=== PATIENT | male | born 1980 | race Caucasian/White ===

== ENCOUNTER 2023-10-18 11:23 | Inpatient (IN) | payer OTHER ==
[2023-10-18 12:17] VITALS: BMI 24.1
[2023-10-18] MEDS ORDERED: NALOXONE HCL (KLOXXADO) 8 MG SPRAY NS PRN (12:50)
[2023-10-18] MEDS ORDERED: MAGNESIUM HYDROX 2400MG/30ML ORAL SUSPENSION 30 ML CUP PO PRN (12:50)
[2023-10-18] MEDS ORDERED: ONDANSETRON *ODT* 4 MG TABLET SL PRN (12:50)
[2023-10-18] MEDS ORDERED: MAG HYDROX/AL HYDROX/SIMETH 30 ML UNIT-DOSE CUP PO PRN (12:50)
[2023-10-18] MEDS ORDERED: METHOCARBAMOL 500 MG TABLET PO PRN (12:50)
[2023-10-18] MEDS ORDERED: BENZONATATE 200 MG CAPSULE PO PRN (12:50)
[2023-10-18] MEDS ORDERED: LORazepam 1 MG TABLET PO PRN (12:50)
[2023-10-18] MEDS ORDERED: POLYETHYLENE GLYCOL (HEALTHYLAX) 3350 17 GM PACKET PO PRN (12:50)
[2023-10-18] MEDS ORDERED: IBUPROFEN 600 MG TABLET (FP) PO PRN (12:50)
[2023-10-18] MEDS ORDERED: BISMUTH SUBSALICYLATE 262 MG/15 ML BTL PO PRN (12:50)
[2023-10-18] MEDS ORDERED: LOPERAMIDE HCL 2 MG CAPSULE PO PRN (12:50)
[2023-10-18] MEDS ORDERED: DICYCLOMINE HCL 10 MG CAPSULE PO PRN (12:50)
[2023-10-18] MEDS ORDERED: BENZOCAINE/MENTHOL (CHLORASEPTIC ) LOZENGE MM PRN (12:50)
[2023-10-18] MEDS ORDERED: guaiFENesin 600 MG TABLET.ER (FP) PO PRN (12:50)
[2023-10-18] MEDS ORDERED: IBUPROFEN 400 MG TABLET (FP) PO PRN (12:50)
[2023-10-18] MEDS ORDERED: NALOXONE HCL 0.4 MG/ML VIAL IM PRN (12:50)
[2023-10-18] MEDS ORDERED: hydrOXYzine PAMOATE 25 MG CAPSULE (FP) PO PRN (12:50)
[2023-10-18] MEDS ORDERED: NICOTINE 21 MG/24 HOURS TOPICAL PATCH TD STA (15:08)
[2023-10-18] MEDS ORDERED: PRENATAL VITAMINS W/ FOLIC ACID TABLET (FP) PO ONE (15:15)
[2023-10-18] MEDS: PRENATAL VITAMINS W/ FOLIC ACID TABLET (FP) PO SCH (15:45)
[2023-10-18] MEDS: NICOTINE 21 MG/24 HOURS TOPICAL PATCH TD SCH (15:46)
[2023-10-18] MEDS: LORazepam 2 MG TABLET PO SCH (22:34)
[2023-10-18] MEDS: MELATONIN 5 MG TABLETS PO SCH (22:34)
[2023-10-18] MEDS: THIAMINE HCL 100 MG TABLET (FP) PO SCH (22:34)
[2023-10-19] MEDS: LORazepam 2 MG TABLET PO SCH ×4 (05:28→22:35)
[2023-10-19] MEDS: PRENATAL VITAMINS W/ FOLIC ACID TABLET (FP) PO SCH (10:41)
[2023-10-19] MEDS: methaDONE HCL 40 MG DISPERSABLE TABLET PO SCH (10:41)
[2023-10-19 10:50] LABS: CHLORIDE 108 mmol/L (98-107); SODIUM 143 mmol/L (136-145)
[2023-10-19 11:03] LABS: HEMOGLOBIN 12.4 GM/dL (11.7-16.9); MCH 32.4 pg (25.7-33.7); MCHC 33.4 g/dl (32.0-35.9); MEAN CELL VOLUME 97.1 fl (80-96); MEAN PLT VOLUME 8.5 fl (7.5-11.1); PLATELET COUNT 206 10^3/uL (134-434); RBC 3.81 M/mm3 (4.00-5.60); RDW 13.3 % (11.9-15.9); WHITE BLOOD COUNT 5.2 K/mm3 (4.0-10.0)
[2023-10-19 11:08] LABS: CALCIUM 8.4 mg/dL (8.5-10.1); GLUCOSE,RANDOM 79 mg/dL (74-106)
[2023-10-19 11:09] LABS: ALBUMIN 3.2 g/dl (3.4-5.0); ANION GAP 4 mmol/L (4-13); CO2 31 mmol/L (21-32)
[2023-10-19 11:12] LABS: CREATININE 0.6 mg/dL (0.55-1.3); SGOT/AST 23 U/L (15-37); SGPT/ALT 22 U/L (13-61)
[2023-10-19 11:13] LABS: BILIRUBIN,TOTAL 0.8 mg/dL (0.2-1); TOT PROT 5.6 g/dl (6.4-8.2)
[2023-10-19 11:14] LABS: ALK PHOS 63 U/L (45-117)
[2023-10-19] MEDS: NICOTINE 21 MG/24 HOURS TOPICAL PATCH TD SCH (13:20)
[2023-10-19] MEDS: THIAMINE HCL 100 MG TABLET (FP) PO SCH (22:35)
[2023-10-19] MEDS: MELATONIN 5 MG TABLETS PO SCH (22:35)
[2023-10-20] MEDS: LORazepam 1 MG TABLET PO SCH ×4 (06:04→22:45)
[2023-10-20] MEDS: methaDONE HCL 40 MG DISPERSABLE TABLET PO SCH (06:06)
[2023-10-20] MEDS: NICOTINE 21 MG/24 HOURS TOPICAL PATCH TD SCH (10:36)
[2023-10-20] MEDS: PRENATAL VITAMINS W/ FOLIC ACID TABLET (FP) PO SCH (10:36)
[2023-10-20] MEDS: ACETAMINOPHEN 325 MG TABLET (FP) PO PRN (17:42)
[2023-10-20] MEDS: MELATONIN 5 MG TABLETS PO SCH (22:45)
[2023-10-20] MEDS: THIAMINE HCL 100 MG TABLET (FP) PO SCH (22:45)
[2023-10-21] MEDS ORDERED: LORazepam 0.5 MG TABLET PO PRN
[2023-10-21] MEDS: methaDONE HCL 40 MG DISPERSABLE TABLET PO SCH (05:25)
[2023-10-21] MEDS: LORazepam 0.5 MG TABLET PO SCH ×4 (05:26→22:40)
[2023-10-21] MEDS: NICOTINE 21 MG/24 HOURS TOPICAL PATCH TD SCH (10:15)
[2023-10-21] MEDS: PRENATAL VITAMINS W/ FOLIC ACID TABLET (FP) PO SCH (10:15)
[2023-10-21] MEDS: ACETAMINOPHEN 325 MG TABLET (FP) PO PRN (17:26)
[2023-10-21 21:05] VITALS: RESP 18
[2023-10-21] MEDS: THIAMINE HCL 100 MG TABLET (FP) PO SCH (22:40)
[2023-10-21] MEDS: MELATONIN 5 MG TABLETS PO SCH (22:40)
[2023-10-22] MEDS ORDERED: LORazepam 0.5 MG TABLET PO ONE (05:00)
[2023-10-22] MEDS: methaDONE HCL 40 MG DISPERSABLE TABLET PO SCH (05:51)
[2023-10-22 08:54] VITALS: BP 124/69; PULSE 68; TEMP 97.7
[2023-10-22] MEDS: NICOTINE 21 MG/24 HOURS TOPICAL PATCH TD SCH (10:29)
[2023-10-22] MEDS: PRENATAL VITAMINS W/ FOLIC ACID TABLET (FP) PO SCH (10:29)
== END 2023-10-22 11:33 | disposition other institution (70) | DRG 773 ==
LOC: YASAS 11:23 → Y3N 13:06
PROVIDERS: ADMIT Allergy & Immunology; ATTEND Surgery
PROC: HZ2ZZZZ Detoxification Services for Substance Abuse Treatment (ICD-10-PCS; principal; 2023-10-18)
DX: F10.230 Alcohol dependence with withdrawal, uncomplicated (principal); F11.20 Opioid dependence, uncomplicated; F14.20 Cocaine dependence, uncomplicated; F17.210 Nicotine dependence, cigarettes, uncomplicated; F31.9 Bipolar disorder, unspecified; Z86.69 Personal history of other diseases of the nervous system and sense organs; Z99.89 Dependence on other enabling machines and devices; Z59.02 Unsheltered homelessness
CPT/HCPCS: 36415; 80053; 80307; 85027; 86780; 87635; 87811; 93005; 93010

== ENCOUNTER 2023-10-22 11:41 | Inpatient (IN) | payer OTHER ==
[2023-10-22] MEDS ORDERED: IBUPROFEN 400 MG TABLET (FP) PO PRN (12:48)
[2023-10-22] MEDS ORDERED: NALOXONE HCL 0.4 MG/ML VIAL IVPUSH PRN (12:48)
[2023-10-22] MEDS ORDERED: hydrOXYzine PAMOATE 25 MG CAPSULE (FP) PO PRN (12:48)
[2023-10-22] MEDS ORDERED: IBUPROFEN 600 MG TABLET (FP) PO PRN (12:48)
[2023-10-22] MEDS ORDERED: BENZONATATE 200 MG CAPSULE PO PRN (12:48)
[2023-10-22] MEDS ORDERED: MAGNESIUM HYDROX 2400MG/30ML ORAL SUSPENSION 30 ML CUP PO PRN (12:48)
[2023-10-22] MEDS ORDERED: LOPERAMIDE HCL 2 MG CAPSULE PO PRN (12:48)
[2023-10-22] MEDS ORDERED: NALOXONE HCL (KLOXXADO) 8 MG SPRAY NS PRN (12:48)
[2023-10-22] MEDS ORDERED: MAG HYDROX/AL HYDROX/SIMETH 30 ML UNIT-DOSE CUP PO PRN (12:48)
[2023-10-22] MEDS ORDERED: POLYETHYLENE GLYCOL (HEALTHYLAX) 3350 17 GM PACKET PO PRN (12:48)
[2023-10-22] MEDS ORDERED: guaiFENesin 600 MG TABLET.ER (FP) PO PRN (12:48)
[2023-10-22] MEDS ORDERED: ACETAMINOPHEN 325 MG TABLET (FP) PO PRN (12:48)
[2023-10-22] MEDS ORDERED: COLLOIDAL OATMEAL 1 BAR EACH TP PRN (12:48)
[2023-10-22] MEDS ORDERED: methaDONE HCL 10 MG TABLET PO ONE (12:51)
[2023-10-22] MEDS: MELATONIN 5 MG TABLETS PO SCH (21:16)
[2023-10-22] MEDS: THIAMINE HCL 100 MG TABLET (FP) PO SCH (21:16)
[2023-10-23] MEDS: methaDONE HCL 40 MG DISPERSABLE TABLET PO SCH (06:28)
[2023-10-23] MEDS: PRENATAL VITAMINS W/ FOLIC ACID TABLET (FP) PO SCH (10:10)
[2023-10-23] MEDS ORDERED: buPROPion HCL 100 MG TABLET PO SCH (13:45)
[2023-10-23] MEDS: buPROPion HCL 100 MG TABLET PO SCH (18:01)
[2023-10-23] MEDS: THIAMINE HCL 100 MG TABLET (FP) PO SCH (21:24)
[2023-10-23] MEDS: MELATONIN 5 MG TABLETS PO SCH (21:24)
[2023-10-23] MEDS: QUEtiapine FUMARATE 100 MG TABLET (FP) PO SCH (21:25)
[2023-10-24] MEDS: methaDONE HCL 40 MG DISPERSABLE TABLET PO SCH (06:20)
[2023-10-24] MEDS: buPROPion HCL 100 MG TABLET PO SCH ×2 (09:33→19:33)
[2023-10-24] MEDS: PRENATAL VITAMINS W/ FOLIC ACID TABLET (FP) PO SCH (09:33)
[2023-10-24] MEDS: SELENIUM SULFIDE 2.25% 180 ML SHAMPOO TP SCH (12:45)
[2023-10-24 13:30] LABS: HIV INTERPRETATION NEGATIVE (NEGATIVE)
[2023-10-24] MEDS: GABAPENTIN 300 MG CAPSULE PO SCH ×2 (13:32→21:13)
[2023-10-24] MEDS: THIAMINE HCL 100 MG TABLET (FP) PO SCH (21:13)
[2023-10-24] MEDS: QUEtiapine FUMARATE 100 MG TABLET (FP) PO SCH (21:13)
[2023-10-24] MEDS: MELATONIN 5 MG TABLETS PO SCH (21:14)
[2023-10-25] MEDS: methaDONE HCL 40 MG DISPERSABLE TABLET PO SCH (06:22)
[2023-10-25] MEDS: GABAPENTIN 300 MG CAPSULE PO SCH ×3 (06:22→21:11)
[2023-10-25] MEDS: buPROPion HCL 100 MG TABLET PO SCH ×2 (09:30→17:08)
[2023-10-25] MEDS: PRENATAL VITAMINS W/ FOLIC ACID TABLET (FP) PO SCH (09:30)
[2023-10-25] MEDS: SELENIUM SULFIDE 2.25% 180 ML SHAMPOO TP SCH (09:31)
[2023-10-25 11:06] LABS: INR 0.99 (0.83-1.09); PROTHROMBIN TIME (PATIENT) 11.5 SEC (9.7-13.0)
[2023-10-25] MEDS: QUEtiapine FUMARATE 100 MG TABLET (FP) PO SCH (21:11)
[2023-10-25] MEDS: MELATONIN 5 MG TABLETS PO SCH (21:11)
[2023-10-25] MEDS: THIAMINE HCL 100 MG TABLET (FP) PO SCH (21:11)
[2023-10-26] MEDS: methaDONE HCL 40 MG DISPERSABLE TABLET PO SCH (06:16)
[2023-10-26] MEDS: GABAPENTIN 300 MG CAPSULE PO SCH ×3 (06:17→21:15)
[2023-10-26] MEDS: BENZOCAINE/MENTHOL (CHLORASEPTIC ) LOZENGE MM PRN ×3 (09:08→21:17)
[2023-10-26] MEDS: buPROPion HCL 100 MG TABLET PO SCH ×2 (09:22→17:20)
[2023-10-26] MEDS: PRENATAL VITAMINS W/ FOLIC ACID TABLET (FP) PO SCH (09:22)
[2023-10-26] MEDS: SELENIUM SULFIDE 2.25% 180 ML SHAMPOO TP SCH (09:23)
[2023-10-26] MEDS ORDERED: ALBUTEROL SO4 HFA INHALER IH PRN (10:32)
[2023-10-26] MEDS ORDERED: guaiFENesin 600 MG TABLET.ER (FP) PO PRN (10:34)
[2023-10-26] MEDS ORDERED: BENZONATATE 200 MG CAPSULE PO PRN (10:34)
[2023-10-26] MEDS: QUEtiapine FUMARATE 100 MG TABLET (FP) PO SCH (21:15)
[2023-10-26] MEDS: THIAMINE HCL 100 MG TABLET (FP) PO SCH (21:15)
[2023-10-26] MEDS: MELATONIN 5 MG TABLETS PO SCH (21:15)
[2023-10-27] MEDS: GABAPENTIN 300 MG CAPSULE PO SCH ×3 (06:25→21:36)
[2023-10-27] MEDS: methaDONE HCL 40 MG DISPERSABLE TABLET PO SCH (06:25)
[2023-10-27] MEDS: buPROPion HCL 100 MG TABLET PO SCH ×2 (09:48→17:12)
[2023-10-27] MEDS: PRENATAL VITAMINS W/ FOLIC ACID TABLET (FP) PO SCH (09:48)
[2023-10-27] MEDS: SELENIUM SULFIDE 2.25% 180 ML SHAMPOO TP SCH (09:54)
[2023-10-27] MEDS: QUEtiapine FUMARATE 100 MG TABLET (FP) PO SCH (21:36)
[2023-10-27] MEDS: MELATONIN 5 MG TABLETS PO SCH (21:36)
[2023-10-27] MEDS: THIAMINE HCL 100 MG TABLET (FP) PO SCH (21:36)
[2023-10-28] MEDS: GABAPENTIN 300 MG CAPSULE PO SCH ×3 (06:47→21:37)
[2023-10-28] MEDS: methaDONE HCL 40 MG DISPERSABLE TABLET PO SCH (06:47)
[2023-10-28] MEDS: PRENATAL VITAMINS W/ FOLIC ACID TABLET (FP) PO SCH (10:42)
[2023-10-28] MEDS: buPROPion HCL 100 MG TABLET PO SCH ×2 (10:42→17:01)
[2023-10-28] MEDS: SELENIUM SULFIDE 2.25% 180 ML SHAMPOO TP SCH (10:49)
[2023-10-28] MEDS: MELATONIN 5 MG TABLETS PO SCH (21:37)
[2023-10-28] MEDS: QUEtiapine FUMARATE 100 MG TABLET (FP) PO SCH (21:38)
[2023-10-28] MEDS: THIAMINE HCL 100 MG TABLET (FP) PO SCH (21:38)
[2023-10-29] MEDS: methaDONE HCL 40 MG DISPERSABLE TABLET PO SCH (06:38)
[2023-10-29] MEDS: GABAPENTIN 300 MG CAPSULE PO SCH ×3 (06:38→21:24)
[2023-10-29] MEDS: PRENATAL VITAMINS W/ FOLIC ACID TABLET (FP) PO SCH (10:11)
[2023-10-29] MEDS: buPROPion HCL 100 MG TABLET PO SCH ×2 (10:11→17:24)
[2023-10-29] MEDS: SELENIUM SULFIDE 2.25% 180 ML SHAMPOO TP SCH (11:10)
[2023-10-29] MEDS: THIAMINE HCL 100 MG TABLET (FP) PO SCH (21:24)
[2023-10-29] MEDS: MELATONIN 5 MG TABLETS PO SCH (21:24)
[2023-10-29] MEDS: QUEtiapine FUMARATE 100 MG TABLET (FP) PO SCH (21:24)
[2023-10-30] MEDS: GABAPENTIN 300 MG CAPSULE PO SCH ×3 (07:00→21:52)
[2023-10-30] MEDS: methaDONE HCL 40 MG DISPERSABLE TABLET PO SCH (07:00)
[2023-10-30] MEDS: buPROPion HCL 100 MG TABLET PO SCH ×2 (09:31→17:35)
[2023-10-30] MEDS: PRENATAL VITAMINS W/ FOLIC ACID TABLET (FP) PO SCH (09:31)
[2023-10-30] MEDS: SELENIUM SULFIDE 2.25% 180 ML SHAMPOO TP SCH (09:40)
[2023-10-30] MEDS: MELATONIN 5 MG TABLETS PO SCH (21:52)
[2023-10-30] MEDS: THIAMINE HCL 100 MG TABLET (FP) PO SCH (21:52)
[2023-10-30] MEDS: QUEtiapine FUMARATE 100 MG TABLET (FP) PO SCH (21:52)
[2023-10-31] MEDS: methaDONE HCL 40 MG DISPERSABLE TABLET PO SCH (07:00)
[2023-10-31] MEDS: GABAPENTIN 300 MG CAPSULE PO SCH ×3 (07:00→21:32)
[2023-10-31] MEDS: PRENATAL VITAMINS W/ FOLIC ACID TABLET (FP) PO SCH (10:04)
[2023-10-31] MEDS: buPROPion HCL 100 MG TABLET PO SCH ×2 (10:05→17:19)
[2023-10-31] MEDS: SELENIUM SULFIDE 2.25% 180 ML SHAMPOO TP SCH (10:09)
[2023-10-31] MEDS: QUEtiapine FUMARATE 100 MG TABLET (FP) PO SCH (21:32)
[2023-10-31] MEDS: THIAMINE HCL 100 MG TABLET (FP) PO SCH (21:32)
[2023-10-31] MEDS: MELATONIN 5 MG TABLETS PO SCH (21:33)
[2023-11-01] MEDS: GABAPENTIN 300 MG CAPSULE PO SCH ×3 (06:48→21:46)
[2023-11-01] MEDS: methaDONE HCL 40 MG DISPERSABLE TABLET PO SCH (06:48)
[2023-11-01] MEDS: PRENATAL VITAMINS W/ FOLIC ACID TABLET (FP) PO SCH (10:15)
[2023-11-01] MEDS: buPROPion HCL 100 MG TABLET PO SCH ×2 (10:15→17:47)
[2023-11-01] MEDS: THIAMINE HCL 100 MG TABLET (FP) PO SCH (21:46)
[2023-11-01] MEDS: QUEtiapine FUMARATE 100 MG TABLET (FP) PO SCH (21:46)
[2023-11-01] MEDS: MELATONIN 5 MG TABLETS PO SCH (21:46)
[2023-11-02] MEDS: methaDONE HCL 40 MG DISPERSABLE TABLET PO SCH (06:45)
[2023-11-02] MEDS: GABAPENTIN 300 MG CAPSULE PO SCH (06:45)
[2023-11-02 06:53] VITALS: BP 116/79; PULSE 98; RESP 17; TEMP 97.2
[2023-11-02] MEDS: buPROPion HCL 100 MG TABLET PO SCH (09:30)
[2023-11-02] MEDS: PRENATAL VITAMINS W/ FOLIC ACID TABLET (FP) PO SCH (09:30)
== END 2023-11-02 09:48 | disposition home or self-care (01) | DRG 772 ==
LOC: YASAS 11:41 → Y3E 11:44
PROVIDERS: ADMIT Allergy & Immunology; ATTEND Psychiatry & Neurology Pain Medicine
PROC: HZ42ZZZ Group Counseling for Substance Abuse Treatment, Cognitive-Behavioral (ICD-10-PCS; principal; 2023-10-22)
DX: F11.20 Opioid dependence, uncomplicated (principal); F10.20 Alcohol dependence, uncomplicated; F14.20 Cocaine dependence, uncomplicated; F17.210 Nicotine dependence, cigarettes, uncomplicated; F31.9 Bipolar disorder, unspecified; F10.282 Alcohol dependence with alcohol-induced sleep disorder; M54.32 Sciatica, left side; L85.3 Xerosis cutis; L21.0 Seborrhea capitis; J06.9 Acute upper respiratory infection, unspecified; B97.4 Respiratory syncytial virus as the cause of diseases classified elsewhere; Z59.02 Unsheltered homelessness
CPT/HCPCS: 0241U-QW; 36415; 71046-TC-FY; 82140; 83735; 85610; 86803; 87389